=== PATIENT | male | born 1950 | race Caucasian/White ===

== ENCOUNTER 2017-02-16 13:30 | Inpatient (IN) | payer MEDICARE ==
[2017-02-16] VITALS (8 sets, daily range): BP systolic 99–129; BP diastolic 59–70; PULSE 102–118; RESP 16–20; TEMP 97.7–101.8; O2SAT 93–97
[~2017-02-16] VITALS: Ht 175.3 cm; Wt 89.4 kg
[~2017-02-16 13:30] MED LIST: AMPH1TAB66; CITA20TA4; LORA2TAB7; OXYC-395
[2017-02-16] MEDS ORDERED: PIPERACIL-TAZO 3.375 GM PREMIX 50 ML IV ONE (14:00)
[2017-02-16] MEDS ORDERED: VANCOMYCIN INJ 1,000 MG in SODIUM CHLOR 0.9% 250 ML INJ 250 ML IV ONE (14:00)
[2017-02-16] MEDS ORDERED: SODIUM CHLOR 0.9% 1000 ML INJ 1,000 ML IV ONE ×2 (14:00→18:00)
--- NOTE | 2017-02-16 14:07 | PD ---
HPI Chief Complaint: Complaint Time Seen by Provider: 13:49 Travel History International Travel<30 days: No Contact w/Intl Traveler<30days: No Traveled to known affect area: No History of Present Illness HPI 66-year-old male complains of low abdominal pain abdominal bloating and hematuria. Patient status post prostate biopsy 2 days ago by urologist Dr. Nolen. Patient was instructed to take Cipro before the procedure, the day of the procedure and the day after the procedure. Patient is not on antibiotics since then. Patient started having hematuria and shaking chills and fever after the procedure. Patient denies any headache. Patient denies any neck pain. Patient complains chest wall pain. Patient denies any shortness of breath offing congestion. Patient complains of cramping pain diffuse over the abdomen especially lower abdomen. Patient denies any pain radiation. Patient denies any nausea vomiting or diarrhea. Patient complains of constipation. Patient denies any dysuria or frequency. PFSH Social History Tobacco Use: No Allergies-Medications (Allergen,Severity, Reaction): Coded Allergies: No Known Allergies (Unverified Adverse Reaction, Unknown, 02/16/17) Reported Meds & Prescriptions Reported Meds & Active Scripts Active Reported Vitamin D3 (Cholecalciferol (Vitamin D3)) 2,000 Unit Tab.chew 2,000 Unit PO DAILY Potassium (Potassium Gluconate) 600 Mg (99 Mg) Tablet 1 Tab PO DAILY Oxycodone (Oxycodone HCl) 10 Mg Tab 10 Mg PO Q4H PRN Pantoprazole (Pantoprazole Sodium) 20 Mg Tab 20 Mg PO DAILY Magnesium Gluconate 27 Mg (500 Mg) Tab 500 Mg PO DAILY Lorazepam 2 Mg Tab 2 Mg PO BID PRN Review of Systems General / Constitutional: No: Fever Eyes: No: Visual changes HENT: No: Headaches Cardiovascular: No: Chest Pain or Discomfort Respiratory: No: Shortness of Breath Gastrointestinal: Positive: Abdominal Pain Genitourinary: Positive: Hematuria, No: Dysuria Musculoskeletal: No: Pain Skin: No Rash Neurologic: No: Weakness Psychiatric: No: Depression Endocrine: No: Polydipsia Hematologic/Lymphatic: No: Easy Bruising Physical Exam Narrative GENERAL: Well-nourished, well-developed patient. SKIN: Focused skin assessment warm/dry. HEAD: Normocephalic. EYES: No scleral icterus. No injection or drainage. NECK: Supple, trachea midline. No JVD or lymphadenopathy. CARDIOVASCULAR: Regular rate and rhythm without murmurs, gallops, or rubs. RESPIRATORY: Breath sounds equal bilaterally. No accessory muscle use. GASTROINTESTINAL: Abdomen soft, nondistended. Mild diffuse tenderness over the lower abdomen and right side the abdomen. No rebound tenderness. No mass. MUSCULOSKELETAL: No cyanosis, or edema. BACK: Nontender without obvious deformity. No CVA tenderness. Neurologic exam normal. Data Data Last Documented VS Vital Signs Date Time Temp Pulse Resp B/P (MAP) Pulse Ox O2 Delivery O2 Flow Rate FiO2 02/16/17 16:30 98.7 102 18 108/64 (79) 95 Room Air Orders Orders Electrocardiogram (02/16/17 13:58) Complete Blood Count With Diff (02/16/17 13:58) Comprehensive Metabolic Panel (02/16/17 13:58) Creatine Kinase (Cpk) (02/16/17 13:58) Troponin I (02/16/17 13:58) Prothrombin Time / Inr (Pt) (02/16/17 13:58) Act Partial Throm Time (Ptt) (02/16/17 13:58) Blood Culture (02/16/17 13:58) Urinalysis - C+S If Indicated (02/16/17 13:58) Chest, Single Ap (02/16/17 13:58) Ct Abd/Pel W Iv Contrast(Rout) (02/16/17 13:58) Iv Access Insert/Monitor (02/16/17 13:58) Ecg Monitoring (02/16/17 13:58) Oximetry (02/16/17 13:58) Sodium Chlor 0.9% 1000 Ml Inj (Ns 1000 M (02/16/17 14:00) Piperacil-Tazo 3.375 Gm Premix (Zosyn 3. (02/16/17 14:00) Vancomycin Inj (Vancomycin Inj) (02/16/17 14:00) Lactic Acid Sepsis Protocol (02/16/17 14:02) Urine Culture (02/16/17 14:53) Iohexol 350 Inj (Omnipaque 350 Inj) (02/16/17 15:23) Admit Order (Ed Use Only) (02/16/17 16:39) Lipase (02/16/17 14:30) Labs Laboratory Tests Test 02/16/17 14:30 02/16/17 14:53 White Blood Count 14.2 TH/MM3 Red Blood Count 4.93 MIL/MM3 Hemoglobin 15.7 GM/DL Hematocrit 47.4 % Mean Corpuscular Volume 96.2 FL Mean Corpuscular Hemoglobin 31.9 PG Mean Corpuscular Hemoglobin Concent 33.2 % Red Cell Distribution Width 12.9 % Platelet Count 141 TH/MM3 Mean Platelet Volume 9.4 FL Neutrophils (%) (Auto) 91.2 % Lymphocytes (%) (Auto) 4.2 % Monocytes (%) (Auto) 3.0 % Eosinophils (%) (Auto) 0.2 % Basophils (%) (Auto) 1.4 % Neutrophils # (Auto) 13.0 TH/MM3 Lymphocytes # (Auto) 0.6 TH/MM3 Monocytes # (Auto) 0.4 TH/MM3 Eosinophils # (Auto) 0.0 TH/MM3 Basophils # (Auto) 0.2 TH/MM3 CBC Comment DIFF FINAL Differential Comment Prothrombin Time 11.7 SEC Prothromb Time International Ratio 1.2 RATIO Activated Partial Thromboplast Time 26.9 SEC Blood Urea Nitrogen 19 MG/DL Creatinine 1.50 MG/DL Random Glucose 145 MG/DL Total Protein 7.4 GM/DL Albumin 3.5 GM/DL Calcium Level 9.1 MG/DL Alkaline Phosphatase 68 U/L Aspartate Amino Transf (AST/SGOT) 25 U/L Alanine Aminotransferase (ALT/SGPT) 36 U/L Total Bilirubin 1.6 MG/DL Sodium Level 137 MEQ/L Potassium Level 3.6 MEQ/L Chloride Level 100 MEQ/L Carbon Dioxide Level 26.7 MEQ/L Anion Gap 10 MEQ/L Estimat Glomerular Filtration Rate 47 ML/MIN Lactic Acid Level 2.4 mmol/L Total Creatine Kinase 98 U/L Troponin I LESS THAN 0.02 NG/ML Lipase 87 U/L Urine Collection Type CLEAN CATCH Urine Color DARK-YELLOW Urine Turbidity CLOUDY Urine pH 5.5 Urine Specific [place] 1.027 Urine Protein 100 mg/dL Urine Glucose (UA) NEG mg/dL Urine Ketones 15 mg/dL Urine Occult Blood LARGE Urine Nitrite POS Urine Bilirubin MOD Urine Leukocyte Esterase MOD Urine RBC 20-24 /hpf Urine WBC INNUM /hpf Urine Bacteria OCC /hpf Urine Sperm FEW Microscopic Urinalysis Comment CULTURE INDICATED MDM Medical Decision Making Medical Screen Exam Complete: Yes Emergency Medical Condition: Yes Interpretation(s) Last Impressions Chest X-Ray 02/16/178 Signed Impressions: Service Date/Time: Thursday, February 16, 2017 14:26 - CONCLUSION: No acute disease. Juancho Farooq MD 1506 p.m. CBC WBC 14.2. Platelet 141. 91 neutrophil. BUN 19. Creatinine 1.50. Lactic acid 2.4. UA positive for blood nitrite and leukocyte. 1624 PM. Last Impressions Chest X-Ray 02/16/178 Signed Impressions: Service Date/Time: Thursday, February 16, 2017 14:26 - CONCLUSION: No acute disease. Juancho Farooq MD Abdomen/Pelvis CT 02/16/171357 Signed Impressions: Service Date/Time: Thursday, February 16, 2017 15:08 - CONCLUSION: 1. Scattered diverticulosis of the colon without inflammatory changes. 2. Prominence of the prostate gland measuring 5.5 cm. 3. Bibasilar atelectasis. 4. No acute pathology. Juancho Farooq MD 1624 PM. UA positive for WBC RBC and bacteria. Differential Diagnosis Differential diagnosis including prostatitis, hematuria, bowel perforation, sepsis. Narrative Course 66-year-old male with low abdominal pain, low abdominal bloating, hematuria, fever and shaking chills. Status post prostate biopsy 2 days ago. Normal saline solution 1 L IV bolus. Zosyn 3.375 g IV given. Vancomycin 1 g IV. Diagnosis Primary Impression: Sepsis Qualified Codes: A41.9 - Sepsis, unspecified organism Additional Impression: UTI (urinary tract infection) Qualified Codes: N30.01 - Acute cystitis with hematuria Admitting Information Admitting Physician Requests: Admit Robin Yeager MD Feb 16, 2017 14:07
--- NOTE | 2017-02-16 14:42 | RADRPT ---
EXAM DATE/TIME: 02/16/2017 14:26 [facility] COMPARISON: No previous studies available for comparison. INDICATIONS : Fever, short of breath MEDICAL HISTORY : None. SURGICAL HISTORY : None. ENCOUNTER: Initial ACUITY: 2 days PAIN SCORE: 0/10 LOCATION: Bilateral chest FINDINGS: A single view of the chest demonstrates the lungs to be symmetrically aerated without evidence of mas s, infiltrate or effusion. The cardiomediastinal contours are unremarkable. Osseous structures are intact. CONCLUSION: No acute disease. Juancho Farooq MD on February 16, 2017 at 14:40 Board Certified Radiologist. This report was verified electronically.
[2017-02-16 14:55] LABS: CHLORIDE 100 MEQ/L (98-107); POTASSIUM 3.6 MEQ/L (3.5-5.1); SODIUM (NA) 137 MEQ/L (136-145)
[2017-02-16 14:57] LABS: BASOPHIL # 0.2 TH/MM3 (0-0.2); BASOPHIL % 1.4 % (0.0-2.0); EOSINOPHIL % 0.2 % (0.0-4.0); HEMATOCRIT 47.4 % (39.0-51.0); HEMO FLAGS DIFF FINAL; LYMPH % 4.2 % (9.0-44.0); LYMPHOCYTE # 0.6 TH/MM3 (1.0-4.8); MEAN CELL VOLUME 96.2 FL (80.0-100.0); MEAN CORPUSCULAR HEMOGLOBIN 31.9 PG (27.0-34.0); MEAN CORPUSCULAR HGB CONC 33.2 % (32.0-36.0); NEUT % 91.2 % (16.0-70.0); PLATELET COUNT 141 TH/MM3 (150-450); RED BLOOD COUNT 4.93 MIL/MM3 (4.50-5.90); RED CELL DISTRIBUTION WIDTH 12.9 % (11.6-17.2); WHITE BLOOD COUNT 14.2 TH/MM3 (4.0-11.0)
[2017-02-16 14:59] LABS: ANION GAP 10 MEQ/L (5-15); BICARBONATE 26.7 MEQ/L (21.0-32.0); BLOOD UREA NITROGEN 19 MG/DL (7-18)
[2017-02-16 15:01] LABS: APTT (PATIENT) 26.9 SEC (24.3-30.1); INTERNATIONAL NORMALIZED RATIO 1.2 RATIO; PROTHROMBIN TIME - PATIENT 11.7 SEC (9.8-11.6)
[2017-02-16 15:02] LABS: ALT (GPT) 36 U/L (12-78); AST (GOT) 25 U/L (15-37); GLOMERULAR FILTRATION RATE 47 ML/MIN (>89)
[2017-02-16 15:04] LABS: BLOOD, URINE LARGE (NEG); GLUCOSE,URINE NEG (NEG); KETONE, URINE 15 mg/dL (NEG); NITRITE,URINE POS (NEG); PH, URINE 5.5 (5.0-8.5)
[2017-02-16 15:04] LABS: TOTAL BILIRUBIN ADULT 1.6 MG/DL (0.2-1.0)
[2017-02-16 15:05] LABS: ALKALINE PHOSPHATASE 68 U/L (45-117)
[2017-02-16 15:11] LABS: BACTERIA, URINE OCC /hpf; COMMENT (UR) CULTURE INDICATED; CULTURE IF INDICATED CULTURE INDICATED; METHOD OF COLLECTION CLEAN CATCH; URINE COLOR DARK-YELLOW (YELLW/STRAW); WBC, URINE INNUM /hpf (0-5)
[2017-02-16 15:14] LABS: CREATINE KINASE 98 U/L (39-308)
[2017-02-16] MEDS ORDERED: POTA-255 PO (15:15)
[2017-02-16] MEDS ORDERED: PANT20TA2 PO (15:15)
[2017-02-16] MEDS ORDERED: MELO15TA20 PO (15:15)
[2017-02-16] MEDS ORDERED: MAGN500T5 PO (15:15)
[2017-02-16] MEDS ORDERED: OXYC-395 PO (15:15)
[2017-02-16] MEDS ORDERED: LORA2TAB7 PO (15:15)
[2017-02-16] MEDS ORDERED: CHOL1CHW5 PO (15:15)
[2017-02-16] MEDS ORDERED: IOHEXOL 350 MG/ML 10 ML VIAL (for RAD DIAG) IVCONTRAST ONE (15:23)
--- NOTE | 2017-02-16 15:32 | RADRPT ---
EXAM DATE/TIME: 02/16/2017 15:08 [facility] COMPARISON: No previous studies available for comparison. INDICATIONS : Blood in urine, fever, chills, post biopsy prostate. IV CONTRAST: 80 cc Omnipaque 350 (iohexol) IV ORAL CONTRAST: No oral contrast ingested. RADIATION DOSE: 15.86 CTDIvol (mGy) MEDICAL HISTORY : Hypertension. Gastroesophageal reflux disease. SURGICAL HISTORY : Biopsy prostate 02/14/17 ENCOUNTER: Initial ACUITY: 1 day PAIN SCALE: 6/10 LOCATION: abdominal TECHNIQUE: Volumetric scanning of the abdomen and pelvis was performed. Using automated exposure control and ad justment of the mA and/or kV according to patient size, radiation dose was kept as low as reasonably achievable to obtain optimal diagnostic quality images. DICOM format image data is available electro nically for review and comparison. FINDINGS: - LOWER LUNGS: Mild bibasilar atelectasis. LIVER: Homogeneous density without lesion. There is no dilation of the biliary tree. No calcified gallston es. SPLEEN: Normal size without lesion. PANCREAS: Within normal limits. KIDNEYS: Normal in size and shape. There is no mass, stone or hydronephrosis. ADRENAL GLANDS: Within normal limits. VASCULAR: There is no aortic aneurysm. BOWEL/MESENTERY: The stomach, small bowel, and colon demonstrate no acute abnormality. There is no free intraperitone al air or fluid. Scattered diverticulosis of the colon with no inflammatory changes. The appendix is unremarkable. ABDOMINAL WALL: Within normal limits. RETROPERITONEUM: There is no lymphadenopathy. BLADDER: No wall thickening or mass. REPRODUCTIVE: Within normal limits. The prostate gland measures 5.5 cm. INGUINAL: There is no lymphadenopathy or hernia. MUSCULOSKELETAL: Within normal limits for patient age. CONCLUSION: 1. Scattered diverticulosis of the colon without inflammatory changes. 2. Prominence of the prostate gland measuring 5.5 cm. 3. Bibasilar atelectasis. 4. No acute pathology. Juancho Farooq MD on February 16, 2017 at 15:27 Board Certified Radiologist. This report was verified electronically.
[2017-02-16 16:41] LABS: LACTIC ACID GHOST NOT REPORTABLE
--- NOTE | 2017-02-16 18:33 | HHI.HP ---
HPI Service [facility] Primary Care Physician Anastasia Ann D.O. Admission Diagnosis sepsis. UTI. Diagnoses: Chief Complaint: Fevers and chills Travel History International Travel<30 Days: No Contact w/Intl Traveler <30 Da: No Traveled to Known Affected Are: No History of Present Illness 66-year-old white male being in bed for sepsis secondary to urinary tract infection post prostate bx. Patient was in his usual state of health until he got his prostate biopsy 2 days ago. A few hours afterwards, his says he began feeling ill including subjective fevers and chills. Patient began feeling weaker than usual and had a decreased appetite. The next day the noted a fever of 102 and the patient did report having some nausea and vomiting ; patient did have some hematuria in his underwear noted at which point the decided to bring him to the emergency room. In the emergency room, the patient has CT scan done which was otherwise unremarkable, showed a prostate of 5.5 cm. There are no other acute findings on the CT scan. Patient endorses pain in the upper abdomen bilaterally which is up to 6 out of 10. Review of Systems Except as stated in HPI: all other systems reviewed are Neg Past Family Social History Past Medical History Chronic back pain Acid reflux Past Surgical History Recent prostate biopsy Allergies: Coded Allergies: No Known Allergies (Unverified Adverse Reaction, Unknown, 02/16/17) Family History Kidney stones in both sons Physical Exam Vital Signs Vital Signs Date Time Temp Pulse Resp B/P (MAP) Pulse Ox O2 Delivery O2 Flow Rate FiO2 02/16/17 17:55 02/16/17 16:30 98.7 102 18 108/64 (79) 95 Room Air 02/16/17 15:55 102 18 101/64 (76) 94 Room Air 02/16/17 15:20 112 20 108/66 (80) 95 Room Air 02/16/17 15:00 115 20 99/59 (72) 95 Room Air 02/16/17 14:00 95 Room Air 02/16/17 13:39 97.7 118 16 117/66 (83) 97 Physical Exam VS: tachycardia GENERAL: Seems visibly in distress from intense chills SKIN: Warm and dry. EYES: No scleral icterus. No injection or drainage. ENT: No nasal bleeding or discharge. Mucous membranes pink and moist. CARDIOVASCULAR: Regular rate and rhythm. no murmurs RESPIRATORY: No accessory muscle use. Clear to auscultation. Breath sounds equal bilaterally. GASTROINTESTINAL: Has some mild to moderate bilateral upper quadrant tenderness to palpation, hard to tell if the abdomen is truly soft versus taut since the patient seems to be tremoring so much and may be engaging voluntary guarding Extremities: No clubbing, cyanosis, or edema. No obvious deformities. Genitourinary: Penis looks circumcised an unremarkable, scrotum appears also unremarkable and is nontender to palpation MUSCULOSKELETAL: No obvious deformities. grossly intact ROM with 5/5 strength in upper and lower extremities proximally NEUROLOGICAL: Awake and alert. No obvious cranial nerve deficits. No facial droop nor slurred speech noted. PSYCHIATRIC: Appropriate mood and affect; insight and judgment normal. Laboratory Laboratory Tests Test 02/16/17 14:30 02/16/17 14:53 02/16/17 17:02 White Blood Count 14.2 Red Blood Count 4.93 Hemoglobin 15.7 Hematocrit 47.4 Mean Corpuscular Volume 96.2 Mean Corpuscular Hemoglobin 31.9 Mean Corpuscular Hemoglobin Concent 33.2 Red Cell Distribution Width 12.9 Platelet Count 141 Mean Platelet Volume 9.4 Neutrophils (%) (Auto) 91.2 Lymphocytes (%) (Auto) 4.2 Monocytes (%) (Auto) 3.0 Eosinophils (%) (Auto) 0.2 Basophils (%) (Auto) 1.4 Neutrophils # (Auto) 13.0 Lymphocytes # (Auto) 0.6 Monocytes # (Auto) 0.4 Eosinophils # (Auto) 0.0 Basophils # (Auto) 0.2 CBC Comment DIFF FINAL Differential Comment Prothrombin Time 11.7 Prothromb Time International Ratio 1.2 Activated Partial Thromboplast Time 26.9 Blood Urea Nitrogen 19 Creatinine 1.50 Random Glucose 145 Total Protein 7.4 Albumin 3.5 Calcium Level 9.1 Alkaline Phosphatase 68 Aspartate Amino Transf (AST/SGOT) 25 Alanine Aminotransferase (ALT/SGPT) 36 Total Bilirubin 1.6 Sodium Level 137 Potassium Level 3.6 Chloride Level 100 Carbon Dioxide Level 26.7 Anion Gap 10 Estimat Glomerular Filtration Rate 47 Lactic Acid Level 2.4 1.4 Total Creatine Kinase 98 Troponin I LESS THAN 0.02 Urine Collection Type CLEAN CATCH Urine Color DARK-YELLOW Urine Turbidity CLOUDY Urine pH 5.5 Urine Specific [place] 1.027 Urine Protein 100 Urine Glucose (UA) NEG Urine Ketones 15 Urine Occult Blood LARGE Urine Nitrite POS Urine Bilirubin MOD Urine Leukocyte Esterase MOD Urine RBC 20-24 Urine WBC INNUM Urine Bacteria OCC Urine Sperm FEW Microscopic Urinalysis Comment CULTURE INDICATED Date/Time Source Procedure Growth Status 02/16/17 14:35 Blood Peripheral Aerobic Blood Culture Pending Received 02/16/17 14:35 Blood Peripheral Anaerobic Blood Culture Pending Received 02/16/17 14:53 Urine Clean Catch Urine Culture Pending Received Result Diagram: 02/16/17 1430 02/16/17 1430 Caprinernesto VTE Risk Assessment Caprini VTE Risk Assessment: Mod/High Risk (score >= 2) Caprini Risk Assessment Model Point Value = 1 Point Value = 2 Point Value = 3 Point Value = 5 Age 41-60 Minor surgery BMI > 25 kg/m2 Swollen legs Varicose veins or History of unexplained or recurrent spontaneous Oral contraceptives or hormone replacement Sepsis (< 1 month) Serious lung disease, including pneumonia (< 1 month) Abnormal pulmonary function Acute myocardial infarction Congestive heart failure (< 1 month) History of inflammatory bowel disease Medical patient at bed rest Age 61-74 Arthroscopic surgery Major open surgery (> 45 min) Laparoscopic surgery (> 45 min) Malignancy Confined to bed (> 72 hours) Immobilizing plaster cast Central venous access Age >= 75 History of VTE Family history of VTE Factor V Leiden Prothrombin [id number] Lupus anticoagulant Anticardiolipin antibodies Elevated serum homocysteine Heparin-induced thrombocytopenia Other congenital or acquired thrombophilia Stroke (< 1 month) Elective arthroplasty Hip, pelvis, or leg fracture Acute spinal cord injury (< 1 month) Prophylaxis Regimen Total Risk Factor Score Risk Level Prophylaxis Regimen 0-1 Low Early ambulation 2 Moderate Order ONE of the following: *Sequential Compression Device (SCD) *Heparin 5000 units SQ BID 3-4 Higher Order ONE of the following medications: *Heparin 5000 units SQ TID *Enoxaparin/Lovenox 40 mg SQ daily (WT < 150 kg, CrCl > 30 mL/min) *Enoxaparin/Lovenox 30 mg SQ daily (WT < 150 kg, CrCl > 10-29 mL/min) *Enoxaparin/Lovenox 30 mg SQ BID (WT < 150 kg, CrCl > 30 mL/min) AND/OR *Sequential Compression Device (SCD) 5 or more Highest Order ONE of the following medications: *Heparin 5000 units SQ TID (Preferred with Epidurals) *Enoxaparin/Lovenox 40 mg SQ daily (WT < 150 kg, CrCl > 30 mL/min) *Enoxaparin/Lovenox 30 mg SQ daily (WT < 150 kg, CrCl > 10-29 mL/min) *Enoxaparin/Lovenox 30 mg SQ BID (WT < 150 kg, CrCl > 30 mL/min) AND *Sequential Compression Device (SCD) Assessment and Plan Assessment and Plan 66-year-old white male being admitted for sepsis secondary to urinary tract infection post prostate biopsy Sepsis - Blood cultures obtained, we'll follow-up urine culture - Continue antibiotics of Zosyn and vancomycin - Lactic acid elevated, repeat is improving Abdominal pain - Unclear etiology as CT scan is unremarkable and unlikely the patient has a prostate complications leading to some sort of upper abdominal process - We'll start Protonix by mouth daily as this could be stressed induced gastritis and evaluate for improvement - Obtaining lipase and repeating CMP as his bilirubin is slightly elevated chronic back pain - continue home narcotic and hold home NSAID given hematuria anxiety - lorazepam Case discussed with Dr. Vincent from urology, recommended continued medical management. No evidence that the patient is retaining urine at this point but if needed Campos catheter is warranted and clear for suction from urology standpoint. If needed, may also use flomax if BP tolerable. Physician Certification 2 Midnight Certification Type: Admission for Inpatient Services Order for Inpatient Services The services are ordered in accordance with Medicare regulations or non- Medicare payer requirements, as applicable. In the case of services not specified as inpatient-only, they are appropriately provided as inpatient services in accordance with the 2-midnight benchmark. Estimated LOS (days): 3 3 days is the estimated time the patient will need to remain in the hospital, assuming treatment plan goals are met and no additional complications. Post-Hospital Plan: Home Thad Blackwell MD Feb 16, 2017 18:33
[2017-02-16] MEDS ORDERED: ACETAMINOPHEN 325 MG TAB PO PRN (18:45)
[2017-02-16] MEDS ORDERED: PANTOPRAZOLE SOD 40 MG DELAYED RELEASE TAB PO PRN (22:00)
[2017-02-16] MEDS: PANTOPRAZOLE SOD 40 MG DELAYED RELEASE TAB PO SCH (22:42)
[2017-02-16] MEDS: LORazepam 2 MG TAB PO PRN (22:42)
[2017-02-16] MEDS: PIPERACIL-TAZO 3.375 GM PREMIX 50 ML IV SCH (22:43)
[2017-02-16] MEDS: SODIUM CHLOR 0.9% 1000 ML INJ 1,000 ML IV SCH (22:43)
[2017-02-17] VITALS: BP 116/59; PULSE 108; RESP 16; TEMP 99.8; O2SAT 94
[2017-02-17 04:00] VITALS: BP 135/71; PULSE 104; RESP 16; TEMP 98.9; O2SAT 95
[2017-02-17] MEDS: PIPERACIL-TAZO 3.375 GM PREMIX 50 ML IV SCH ×4 (04:07→21:49)
[2017-02-17 06:49] LABS: CHLORIDE 104 MEQ/L (98-107); POTASSIUM 3.5 MEQ/L (3.5-5.1); SODIUM (NA) 139 MEQ/L (136-145)
[2017-02-17 07:03] LABS: ALKALINE PHOSPHATASE 60 U/L (45-117); ALT (GPT) 28 U/L (12-78); ANION GAP 9 MEQ/L (5-15); AST (GOT) 20 U/L (15-37); BICARBONATE 25.6 MEQ/L (21.0-32.0); BLOOD UREA NITROGEN 14 MG/DL (7-18); GLOMERULAR FILTRATION RATE 67 ML/MIN (>89); TOTAL BILIRUBIN ADULT 1.5 MG/DL (0.2-1.0)
[2017-02-17 08:00] VITALS: BP 127/75; PULSE 98; RESP 18; TEMP 99.3; O2SAT 95
[2017-02-17] MEDS ORDERED: NON-FORMULARY DRUG (Potassium Gluconate (Potassium) 1 TAB) PO SCH (09:00)
[2017-02-17] MEDS ORDERED: MELOXICAM 15 MG TAB PO SCH (09:00)
[2017-02-17] MEDS: POTASSIUM CHLORIDE 10 MEQ CONTROLLED RELEASE TAB PO SCH (09:18)
[2017-02-17] MEDS: PANTOPRAZOLE SOD 40 MG DELAYED RELEASE TAB PO SCH (09:19)
[2017-02-17] MEDS: CHOLECALCIFEROL (VIT D3) 1000 UNIT TAB PO SCH (09:19)
--- NOTE | 2017-02-17 10:19 | HHI.PR ---
Subjective Remarks Nursing denies any deterioration since last night. Patient says he feels a little better since yesterday. His abdominal pain is better and he thinks it might have occurred secondary due to his emeses at home. Did have a temp > 101 last night. Says he's chills are better. Objective Vital Signs Date Time Temp Pulse Resp B/P (MAP) Pulse Ox O2 Delivery O2 Flow Rate FiO2 02/17/17 08:00 99.3 98 18 127/75 (92) 95 02/17/17 04:00 98.9 104 16 135/71 (92) 95 02/17/17 00:00 99.8 108 16 116/59 (78) 94 02/16/17 20:00 101.8 110 16 129/70 (89) 93 02/16/17 18:00 99.8 02/16/17 17:55 02/16/17 16:30 98.7 102 18 108/64 (79) 95 Room Air 02/16/17 15:55 102 18 101/64 (76) 94 Room Air 02/16/17 15:20 112 20 108/66 (80) 95 Room Air 02/16/17 15:00 115 20 99/59 (72) 95 Room Air 02/16/17 14:00 95 Room Air 02/16/17 13:39 97.7 118 16 117/66 (83) 97 I/O 02/16/17 02/16/17 02/16/17 02/17/17 02/17/17 02/17/17 07:00 15:00 23:00 07:00 15:00 23:00 Intake Total 2300 ml Balance 2300 ml Intake IV Total 2300 ml # Voids 3 Result Diagram: 02/16/17 1430 02/17/17 0615 Objective Remarks Mild abdominal tenderness on lateral aspects of bilateral upper quadrants Otherwise patient is lying in bed, awake, alert, no acute distress A/P Assessment and Plan 66-year-old white male being admitted for sepsis secondary to urinary tract infection post prostate biopsy Sepsis - Blood cultures growing gram-negative rods, - Continue antibiotics of Zosyn and vancomycin - Improving lactic acid Abdominal pain - Likely secondary to vomiting, improved Elevated bilirubin today still - Will consider US of gallbladder chronic back pain - continue home narcotic and hold home NSAID given hematuria anxiety - lorazepam Thad Blackwell MD Feb 17, 2017 10:19
[2017-02-17 10:27] LABS: AUTOMATED NEUTROPHIL # 10.6 TH/MM3 (1.8-7.7); BASOPHIL % 0.2 % (0.0-2.0); EOSINOPHIL % 0.2 % (0.0-4.0); HEMATOCRIT 39.3 % (39.0-51.0); LYMPH % 5.3 % (9.0-44.0); LYMPHOCYTE # 0.6 TH/MM3 (1.0-4.8); MEAN CELL VOLUME 95.2 FL (80.0-100.0); MEAN CORPUSCULAR HEMOGLOBIN 32.4 PG (27.0-34.0); MONO % 4.8 % (0.0-8.0); NEUT % 89.5 % (16.0-70.0); PLATELET COUNT 113 TH/MM3 (150-450); RED BLOOD COUNT 4.13 MIL/MM3 (4.50-5.90); RED CELL DISTRIBUTION WIDTH 12.3 % (11.6-17.2); WHITE BLOOD COUNT 11.8 TH/MM3 (4.0-11.0)
[2017-02-17 10:37] LABS: HEMO FLAGS AUTO DIFF
[2017-02-17] MEDS: MAGNESIUM OXIDE 400 MG TAB PO SCH (11:00)
[2017-02-17 11:11] LABS: SCAN/DIFF AUTO DIFF CONFIRMED
[2017-02-17 12:00] VITALS: BP 110/68; PULSE 97; RESP 18; TEMP 98.9; O2SAT 94
--- NOTE | 2017-02-17 13:20 | EKG ---
Date Performed: 02/16/2017 Time Performed: 14:13:10 PTAGE: 66 years EKG: SINUS TACHYCARDIA NONSPECIFIC T-WAVE ABNORMALITY ABNORMAL RHYTHM ECG NO PREVIOUS TRACING DOCTOR: Osman Cardoso Interpretating Date/Time 02/17/2017 13:18:54
[2017-02-17 16:00] VITALS: BP 116/66; PULSE 105; RESP 18; TEMP 98.9; O2SAT 96
[2017-02-17] MEDS: POLYETHYLENE GLYCOL 17 GM PKG PO SCH (17:30)
[2017-02-17 20:00] VITALS: BP 122/71; PULSE 97; RESP 16; TEMP 98.6; O2SAT 97
[2017-02-17] MEDS: LORazepam 2 MG TAB PO PRN (21:50)
[2017-02-17] MEDS: SODIUM CHLOR 0.9% 1000 ML INJ 1,000 ML IV SCH (21:50)
[2017-02-18] VITALS: BP 133/68; PULSE 95; RESP 16; TEMP 98.9; O2SAT 97
[2017-02-18] MEDS: PIPERACIL-TAZO 3.375 GM PREMIX 50 ML IV SCH ×4 (03:52→20:04)
[2017-02-18 08:00] VITALS: BP 131/68; PULSE 99; RESP 18; TEMP 98.8; O2SAT 98
[2017-02-18] MEDS: POTASSIUM CHLORIDE 10 MEQ CONTROLLED RELEASE TAB PO SCH (08:18)
[2017-02-18] MEDS: PANTOPRAZOLE SOD 40 MG DELAYED RELEASE TAB PO SCH (08:18)
[2017-02-18] MEDS: CHOLECALCIFEROL (VIT D3) 1000 UNIT TAB PO SCH (08:19)
[2017-02-18] MEDS: POLYETHYLENE GLYCOL 17 GM PKG PO SCH (08:19)
--- NOTE | 2017-02-18 09:53 | HHI.PR ---
Subjective Remarks Nursing denies any deterioration since last night. Patient himself reports some mild subjective fevers or chills. He says his abdominal pain is much improved. He says he's having go to the bathroom a lot but he doesn't mind getting up and walking to the bathroom as opposed to using a urinal if this means he will recover faster in terms of his overall strength and endurance. Objective Vital Signs Date Time Temp Pulse Resp B/P (MAP) Pulse Ox O2 Delivery O2 Flow Rate FiO2 02/18/17 08:00 98.8 99 18 131/68 (89) 98 02/18/17 00:00 98.9 95 16 133/68 (89) 97 02/17/17 20:00 98.6 97 16 122/71 (88) 97 02/17/17 16:00 98.9 105 18 116/66 (83) 96 02/17/17 12:00 98.9 97 18 110/68 (82) 94 I/O 02/17/17 02/17/17 02/17/17 02/18/17 02/18/17 02/18/17 07:00 15:00 23:00 07:00 15:00 23:00 Intake Total 1220 ml 470 ml Balance 1220 ml 470 ml Intake Oral 750 ml IV Total 470 ml 470 ml # Voids 3 6 2 # Bowel Movements 0 Result Diagram: 02/17/1715 02/17/1715 Objective Remarks Minimal abdominal tenderness diffusely, nondistended Otherwise patient is alert, oriented, lying in bed, no acute distress A/P Assessment and Plan 66-year-old white male being admitted for sepsis secondary to urinary tract infection post prostate biopsy New dx of Bacteremia showing E.coli - ordering repeat blood cultures - Continue antibiotics of Zosyn and vancomycin Abdominal pain - Likely secondary to vomiting, nearly resolved Elevated bilirubin today still - pending CMP chronic back pain - continue home narcotic - miralax anxiety - lorazepam DVTs prevention - no hematuria currently, lovenox for now Thad Blackwell MD Feb 18, 2017 09:53
[2017-02-18 10:02] LABS: CHLORIDE 103 MEQ/L (98-107); POTASSIUM 3.5 MEQ/L (3.5-5.1); SODIUM (NA) 137 MEQ/L (136-145)
[2017-02-18 10:06] LABS: ANION GAP 10 MEQ/L (5-15); BICARBONATE 24.1 MEQ/L (21.0-32.0); BLOOD UREA NITROGEN 11 MG/DL (7-18)
[2017-02-18 10:09] LABS: ALT (GPT) 31 U/L (12-78); AST (GOT) 24 U/L (15-37); GLOMERULAR FILTRATION RATE 90 ML/MIN (>89)
[2017-02-18 10:11] LABS: TOTAL BILIRUBIN ADULT 0.9 MG/DL (0.2-1.0)
[2017-02-18 10:12] LABS: ALKALINE PHOSPHATASE 60 U/L (45-117)
[2017-02-18] MEDS: MAGNESIUM OXIDE 400 MG TAB PO SCH (10:58)
[2017-02-18] MEDS: ENOXAPARIN SODIUM 40 MG/0.4 ML SYRINGE SQ SCH (10:58)
[2017-02-18 12:00] VITALS: BP 121/70; PULSE 92; RESP 18; TEMP 98.2; O2SAT 98
[2017-02-18 16:00] VITALS: BP 128/72; PULSE 90; RESP 18; TEMP 98.2; O2SAT 98
[2017-02-18] MEDS: SODIUM CHLOR 0.9% 1000 ML INJ 1,000 ML IV SCH (17:38)
[2017-02-18 20:00] VITALS: BP 127/72; PULSE 91; RESP 18; TEMP 98.4; O2SAT 96
[2017-02-18] MEDS: LORazepam 2 MG TAB PO PRN (20:04)
[2017-02-19] VITALS: BP 106/56; PULSE 87; RESP 16; TEMP 98.6; O2SAT 94
[2017-02-19] MEDS: PIPERACIL-TAZO 3.375 GM PREMIX 50 ML IV SCH ×2 (03:01→09:35)
[2017-02-19 08:00] VITALS: BP 109/58; PULSE 78; RESP 12; TEMP 96.7; O2SAT 94
[2017-02-19] MEDS: POLYETHYLENE GLYCOL 17 GM PKG PO SCH (09:00)
[2017-02-19] MEDS: MAGNESIUM OXIDE 400 MG TAB PO SCH (09:34)
[2017-02-19] MEDS: PANTOPRAZOLE SOD 40 MG DELAYED RELEASE TAB PO SCH (09:35)
[2017-02-19] MEDS: POTASSIUM CHLORIDE 10 MEQ CONTROLLED RELEASE TAB PO SCH (09:35)
[2017-02-19] MEDS: CHOLECALCIFEROL (VIT D3) 1000 UNIT TAB PO SCH (09:35)
[2017-02-19] MEDS: ENOXAPARIN SODIUM 40 MG/0.4 ML SYRINGE SQ SCH (11:12)
--- NOTE | 2017-02-19 13:18 | HHI.PR ---
Subjective Remarks Nursing denies any deterioration since last night. Patient denies any hematuria. Denies any abdominal pain when resting. Says he is urinating frequently without straining and is slightly concerned about this. Objective Vital Signs Date Time Temp Pulse Resp B/P (MAP) Pulse Ox O2 Delivery O2 Flow Rate FiO2 02/19/17 10:50 18 02/19/17 08:00 96.7 78 12 109/58 (75) 94 02/19/17 00:00 98.6 87 16 106/56 (73) 94 02/18/17 20:00 98.4 91 18 127/72 (90) 96 02/18/17 16:00 98.2 90 18 128/72 (90) 98 I/O 02/18/17 02/18/17 02/18/17 02/19/17 02/19/17 02/19/17 07:00 15:00 23:00 07:00 15:00 23:00 Intake Total 100 ml 650 ml 330 ml Balance 100 ml 650 ml 330 ml Intake Oral 600 ml 280 ml IV Total 100 ml 50 ml 50 ml # Voids 2 2 1 # Bowel Movements 0 Result Diagram: 02/17/17 0615 02/18/17 0753 Objective Remarks No upper abdominal tenderness, has mild suprapubic tenderness to palpation Patient lying in bed, no acute distress, awake, alert A/P Assessment and Plan 66-year-old white male being admitted for sepsis secondary to urinary tract infection post prostate biopsy New dx of Bacteremia showing E.coli - ordering repeat blood cultures, 48 hrs marker would be in AM - will transition to po abx Elevated bilirubin today still normalized chronic back pain - continue home narcotic - miralax anxiety - lorazepam DVTs prevention - no hematuria currently, lovenox for now Thad Blackwell MD Feb 19, 2017 13:18
[2017-02-19] MEDS: TOLTERODINE TARTRATE 2 MG CAP LA PO SCH (14:00)
[2017-02-19 16:00] VITALS: BP 133/76; PULSE 90; RESP 14; TEMP 97.2; O2SAT 94
[2017-02-19] MEDS: SODIUM CHLOR 0.9% 1000 ML INJ 1,000 ML IV SCH (17:27)
[2017-02-19] MEDS: SULFAMETHOXAZOLE-TRIMETHOPRIM DS 800-160 MG TAB PO SCH (19:44)
[2017-02-19] MEDS: LORazepam 2 MG TAB PO PRN (19:44)
[2017-02-19 20:00] VITALS: BP 117/63; PULSE 85; RESP 18; TEMP 96.8; O2SAT 96
[2017-02-20] VITALS: BP 132/70; PULSE 82; RESP 18; TEMP 97.5; O2SAT 95
[2017-02-20 07:50] VITALS: BP 121/57; PULSE 65; RESP 20; TEMP 96.8; O2SAT 100
[2017-02-20] MEDS: SULFAMETHOXAZOLE-TRIMETHOPRIM DS 800-160 MG TAB PO SCH (09:51)
[2017-02-20] MEDS: POTASSIUM CHLORIDE 10 MEQ CONTROLLED RELEASE TAB PO SCH (09:51)
[2017-02-20] MEDS: POLYETHYLENE GLYCOL 17 GM PKG PO SCH (09:51)
[2017-02-20] MEDS: PANTOPRAZOLE SOD 40 MG DELAYED RELEASE TAB PO SCH (09:51)
[2017-02-20] MEDS: MAGNESIUM OXIDE 400 MG TAB PO SCH (09:52)
[2017-02-20] MEDS: CHOLECALCIFEROL (VIT D3) 1000 UNIT TAB PO SCH (09:52)
[2017-02-20] MEDS: TOLTERODINE TARTRATE 2 MG CAP LA PO SCH (09:54)
[2017-02-20] MEDS: ENOXAPARIN SODIUM 40 MG/0.4 ML SYRINGE SQ SCH (09:55)
[2017-02-20 11:30] VITALS: BP 142/74; PULSE 93; RESP 20; TEMP 96.9; O2SAT 96
[2017-02-20] MEDS ORDERED: BACT800T5 PO (13:15)
--- NOTE | 2017-02-20 13:16 | HHI.DCPOC ---
Discharge Care Plan Diagnosis: (1) Sepsis (2) Bacteremia (3) UTI (urinary tract infection) Goals to Promote Your Health * To prevent worsening of your condition and complications * To maintain your health at the optimal level Directions to Meet Your Goals Take your medications as prescribed Follow your dietary instruction Follow activity as directed Keep your appointments as scheduled Take your immunizations and boosters as scheduled If your symptoms worsen call your PCP, if no PCP go to Urgent Care Center or Emergency Room Smoking is Dangerous to Your Health. Avoid second hand smoke Call the 24-hour hour crisis hotline for domestic abuse at Glendy Vickers MD Feb 20, 2017 13:16
--- NOTE | 2017-02-20 13:34 | HHI.DS ---
Discharge Summary Admission Date Feb 16, 2017 at 16:41 Discharge Date: Feb 20, 2017 Admitting Diagnosis sepsis. UTI. (1) Bacteremia ICD Code: R78.81 - Bacteremia (2) UTI (urinary tract infection) ICD Code: N39.0 - Urinary tract infection, site not specified Status: Acute Procedures none Brief History - From Admission 66-year-old white male being in bed for sepsis secondary to urinary tract infection post prostate bx. Patient was in his usual state of health until he got his prostate biopsy 2 days ago. A few hours afterwards, his says he began feeling ill including subjective fevers and chills. Patient began feeling weaker than usual and had a decreased appetite. The next day the noted a fever of 102 and the patient did report having some nausea and vomiting ; patient did have some hematuria in his underwear noted at which point the decided to bring him to the emergency room. In the emergency room, the patient has CT scan done which was otherwise unremarkable, showed a prostate of 5.5 cm. There are no other acute findings on the CT scan. Patient endorses pain in the upper abdomen bilaterally which is up to 6 out of 10. CBC/BMP: 02/17/17 0615 02/18/17 0753 Significant Findings Laboratory Tests Test 02/18/17 07:53 Total Protein 6.2 GM/DL (6.4-8.2) Albumin 2.5 GM/DL (3.4-5.0) Calcium Level 7.8 MG/DL (8.5-10.1) Imaging Last Impressions Chest X-Ray 02/16/17 6849 Signed Impressions: Service Date/Time: Thursday, February 16, 2017 14:26 - CONCLUSION: No acute disease. Juancho Farooq MD Abdomen/Pelvis CT 02/16/17 0356 Signed Impressions: Service Date/Time: Thursday, February 16, 2017 15:08 - CONCLUSION: 1. Scattered diverticulosis of the colon without inflammatory changes. 2. Prominence of the prostate gland measuring 5.5 cm. 3. Bibasilar atelectasis. 4. No acute pathology. Juancho Farooq MD PE at Discharge GENERAL: This is a well-nourished, well-developed patient, in no apparent distress. CARDIOVASCULAR: Regular rate and rhythm without murmurs, gallops, or rubs. RESPIRATORY: Clear to auscultation. Breath sounds equal bilaterally. No wheezes , rales, or rhonchi. GASTROINTESTINAL: Abdomen soft, non-tender, nondistended. Normal active bowel sounds MUSCULOSKELETAL: Extremities without clubbing, cyanosis, or edema. NEURO: Alert & Oriented x4 to person, place, time, situation. Moves all ext x4 Pt update on day of discharge Patient doing well today. Blood cultures are negative at 2 days. No further signs of sepsis. Discharge plans discussed with patient and spouse Hospital Course Patient was seen and treated for urinary tract infection and bacteremia which appeared to develop after prostate biopsy for prostate cancer. Patient did well with antibiotics and was discharged home repeat cultures were negative at the time of discharge Pt Condition on Discharge: Good Discharge Disposition: Discharge Home Discharge Time: <= 30 minutes Discharge Instructions DIET: Follow Instructions for: As Tolerated, No Restrictions Activities you can perform: Regular-No Restrictions Follow up Referrals: PCP Follow-up - 1 Week New Medications: Sulfamethoxazole-Trimethoprim (Bactrim DS) 800-160 Mg Tab 1 TAB PO BID for Infection, #20 TAB 0 Refills Continued Medications: Cholecalciferol (Vitamin D3) (Vitamin D3) 2,000 Unit Tab.chew 2000 UNIT PO DAILY Lorazepam (Lorazepam) 2 Mg Tab 2 MG PO BID PRN for ANXIETY, TAB 0 Refills Magnesium Gluconate (Magnesium Gluconate) 27 Mg (500 Mg) Tab 500 MG PO DAILY for Nutritional Supplement, TAB 0 Refills Oxycodone (Oxycodone) 10 Mg Tab 10 MG PO Q4H PRN for PAIN, TAB 0 Refills Pantoprazole (Pantoprazole) 20 Mg Tab 20 MG PO DAILY for Reflux, #30 TAB 0 Refills Potassium Gluconate (Potassium) 600 Mg (99 Mg) Tablet 1 TAB PO DAILY Glendy Vickers MD Feb 20, 2017 13:34
== END 2017-02-20 16:48 | disposition home or self-care (01) | DRG 862 ==
LOC: PHED 13:30 → PHEDA 16:41 → PH3A 17:56
PROVIDERS: ADMIT Hospitalist; ATTEND Hospitalist
DX: T81.4XXA Infection following a procedure, initial encounter (principal); A41.51 Sepsis due to Escherichia coli [E. coli]; R17 Unspecified jaundice; N39.0 Urinary tract infection, site not specified; N32.89 Other specified disorders of bladder; G89.29 Other chronic pain; M54.9 Dorsalgia, unspecified; F41.9 Anxiety disorder, unspecified; K29.70 Gastritis, unspecified, without bleeding; K59.00 Constipation, unspecified; K21.9 Gastro-esophageal reflux disease without esophagitis
CPT/HCPCS: 71010; 74177; 80053; 81001; 82550; 83605; 83690; 84484; 85025; 85610; 85730; 87040; 87077; 87086; 87186; 87205; 93005; 96365; 96367; J1650; J2543; J3370; J7030; J7050; Q9967